=== PATIENT | male | born 1955 | race Two or more races ===

== ENCOUNTER 2024-09-05 07:04 | Inpatient (IN) | payer OTHER ==
[~2024-09-05] VITALS: Ht 188 cm; Wt 145.2 kg
[2024-09-05] VITALS (10 sets, daily range): BP systolic 110–118; BP diastolic 60–78; PULSE 76–106; RESP 14–20; TEMP 97.2–98.3; O2SAT 91–99
[~2024-09-05 07:04] MED LIST: ALBUAER3 IN; ATOR-507 PO; CHOL1TAB28 PO; CYAN-17 PO; FLUT1AER3 IN; LISI-706 PO; OMEG-20 PO; RIVA20TA PO; SILD50TA PO; SPIR25TA8 PO
[2024-09-05] MEDS ORDERED: MORPHINE SULF PF 5 MG/10 ML VIAL ONE (08:06)
[2024-09-05] MEDS: ACETAMINOPHEN IV 1000 MG/100ML (10MG/ML) IV ONE (08:30)
[2024-09-05] MEDS: CELECOXIB 100 MG CAP PO ONE (08:30)
[2024-09-05] MEDS: PREGABALIN CAPSULE 75 MG CAP PO ONE (08:30)
[2024-09-05] MEDS ORDERED: PROPOFOL 10 MG/ML 20 ML IV ONE (08:34)
[2024-09-05] MEDS ORDERED: MIDAZOLAM HCL 2MG/2ML 2ml VIAL (1mg/ml) ONE (08:34)
[2024-09-05] MEDS ORDERED: fentaNYL CITRATE 100 MCG/2 ML VL ONE (08:34)
[2024-09-05] MEDS ORDERED: ePHEDrine SULFATE 50 MG/ML AMP ONE (09:11)
[2024-09-05] MEDS ORDERED: ONDANSETRON HCL 4 MG/2 ML VIAL IV PRN (10:15)
[2024-09-05] MEDS ORDERED: HYDROmorphone HCL 2 MG/ML VL/or syr IV PRN (10:15)
[2024-09-05] MEDS ORDERED: NITROGLYCERIN 0.4 MG SL TAB SL PRN (10:15)
[2024-09-05] MEDS ORDERED: MORPHINE SULFATE INJ 2 MG/ml SYRG IV PRN (10:15)
[2024-09-05] MEDS ORDERED: ALBUTEROL SULF HFA 90MCG INH 200DOSE IN SCH (10:15)
[2024-09-05] MEDS: LACTATED RINGER'S 1,000 ML IV SCH (10:55)
[2024-09-05] MEDS ORDERED: ACCU-CHEK COMFORT CURVE STRIP VI SCH (11:30)
[2024-09-05] MEDS: ACETAMINOPHEN IV 100 ML IV ONE (12:00)
[2024-09-05] MEDS: ceFAZolin 2 GM/D5W100ml 100 ML IV ONE (12:00)
[2024-09-05] MEDS: BUPIVACAINE 0.25% INJ 50ML VIAL ONE (12:01)
[2024-09-05] MEDS: TRANEXAMIC ACID 20 ML ONE (12:01)
[2024-09-05] MEDS: KETOROLAC TROMETH 30 MG/ML 1ML VIAL ONE (12:01)
[2024-09-05] MEDS: GABAPENTIN 400 MG CAP ONE (12:01)
[2024-09-05] MEDS: VANCOMYCIN HCL 1000 MG VL ONE (12:01)
[2024-09-05] MEDS: ROPIVACAINE 0.5% (5MG/ML) 20ML AMPULE IJ ONE (12:02)
[2024-09-05] MEDS ORDERED: DEXTROSE (50%) 50ML SYRG IV PRN (12:15)
[2024-09-05] MEDS: ACCU-CHEK COMFORT CURVE STRIP VI SCH (12:29)
[2024-09-05] MEDS: InsuLIN REG 1unit/0.01ml Soln (100units/ml) SC SCH ×2 (12:29→22:00)
--- NOTE | 2024-09-05 13:08 | DVH ---
CLINICAL INDICATION: S/P SURGERY TECHNIQUE: XY R KNEE 3V XRAY Comparison: None FINDINGS/IMPRESSION: There is no evidence of acute fracture or dislocation. Right total knee arthroplasty.
[2024-09-05] MEDS: ceFAZolin 2 GM/D5W50ml 50 ML IV SCH (13:58)
[2024-09-05] MEDS: SODIUM CHLOR 0.9% PF (SALINE LOCK) 10ML VIAL/SYR IV SCH (13:59)
--- NOTE | 2024-09-05 14:06 | DVHINCON2 ---
Date of service: Sep 05, 2024 Reason for Consultation Medical Management History of Present Illness HPI Patient is a 69M with PMH of HTN, atrial fibrillation on Xarelto, who presents for right total knee replacement. Patient seen after procedure. Notes pain is well managed. Home Meds Reported Medications Spironolactone (Spironolactone) 25 Mg Tab, 25 MG PO DAILY, TAB 09/01/24 Lisinopril & Hydrochlorothiazi (Zestoretic 20-12.5 mg) 1 Tab Tab, 1 TAB PO DAILY, TAB 09/01/24 Atorvastatin Calcium (Lipitor) 40 Mg Tab, 40 MG PO DAILY, TAB 09/01/24 Rivaroxaban (XARELTO) 20 Mg Tab, 20 MG PO DAILY, TAB 09/01/24 Suqbiqfajpm-Drvhvlfwqezl-Gsvdc (Trelegy Ellipta 100-62.5-25 Mcg/INH) 1 Aer Aer, 1 AER IN DAILY, AER 09/01/24 Albuterol Sulfate (VENTOLIN MDI) 90 Mcg Ih, 90 MCG IN PRN, INH 09/01/24 Cyanocobalamin (B12) 1,000 Mcg Cap, 500 MCG PO DAILY, CAP 09/01/24 Cholecalciferol (D3 2000) 2,000 Unit Tab, 2000 UNIT PO DAILY, TAB 09/01/24 [place]-3 Fatty Acids (FISH OIL) 1,000 Mg Cap, 1000 MG PO DAILY, CAP 09/01/24 Sildenafil Citrate (Viagra) 50 Mg Tab, 50 MG PO UD, TAB 09/01/24 Past Medical History Cardiac: AFIB Review of Systems Constitutional: No symptom reported Cardiovascular: No symptom reported Gastrointestinal: No symptom reported H&P Exam Vital Signs Vital Signs Date Time Temp Pulse Resp B/P (MAP) Pulse Ox O2 Delivery O2 Flow Rate FiO2 09/05/24 13:40 81 11 126/78 (94) 93 09/05/24 12:55 Room Air 0 09/05/24 12:55 95 09/05/24 10:55 97.0 97.0 General Appeara: Well developed Pulmonary/Respiratory: Normal inspection, Normal breath sounds Cardiovascular/Chest: Normal inspection, Regular rate Labs/Xrays Labs Test 09/05/24 12:29 Range/Units POC Glucose 84 70-106 mg/dl Assessment/Plan Primary Diagnosis 1. Right Total Knee Replacement 2' Diagnosis/Co-morbidities 2. Hypertension 3. Atrial Fibrillation Plan -CBC and CMP ordered -Hgb A1c ordered -Pain medications as listed in MAR -Hold DVT prophylaxis in setting of recent surgery. Patient takes Xarelto for atrial fibrillation which will suffice on discharge for DVT prophylaxis. -Home medications restarted per MAR -Physical therapy evaluation pending -Patient requests to return home on discharge. -Full Code Plan discussed with: Patient YOAN PALUMBO DO Sep 05, 2024 14:06
[2024-09-05 15:31] LABS: Basophils # (auto) 0.1 10 ^3/uL (0-0.2); Basophils % (auto) 0.4 % (0.0-2.0); Eosinophils # (auto) 0.3 10 ^3/uL (0-0.8); Eosinophils % (auto) 2.1 % (0.0-7.0); Hematocrit 42.8 % (41.0-53.0); Hemoglobin 14.5 g/dL (13.5-17.5); Lymphocytes # (auto) 1.9 10 ^3/uL (0.4-5.4); Mean Corpuscular Hemoglobin 30.8 pg (28.0-32.0); Mean Corpuscular Hgb Conc. 33.8 g/dL (32.0-36.0); Mean Corpuscular Volume 91.1 fL (80.0-100.0); Monocytes # (auto) 1.3 10 ^3/uL (0-1.3); Monocytes % (auto) 9.6 % (0.0-12.0); Neutrophils # (auto) 9.8 10 ^3/uL (1.6-8.6); Neutrophils % (auto) 73.9 % (37.0-80.0); Platelet Count (auto) 223 10^3/uL (140-450); Red Cell Distribution Width 13.5 % (11.8-14.3); White Blood Cell 13.2 10^3/uL (4.4-10.8)
[2024-09-05 15:51] LABS: Alanine Aminotransferase 29 U/L (7-40); Alkaline Phosphatase 92 U/L (46-116); Anion Gap 7 (5-15); Aspartate Aminotransferase 23 U/L (13-40); Blood Urea Nitrogen 11 mg/dL (9-23); Carbon Dioxide 30 mmol/L (20-31); Chloride 102 mmol/L (98-107); Cholesterol 160 mg/dL (< 200); Glucose 99 mg/dL (74-106); LDL Cholesterol 88 mg/dL (< 100); Sodium 139 mmol/L (136-145); Triglycerides 103 mg/dL (< 150)
[2024-09-05 15:52] LABS: HDL Cholesterol 50 mg/dL (40-59); Total Protein 6.3 g/dL (5.7-8.2)
[2024-09-05 15:58] LABS: Bilirubin, Total 0.8 mg/dL (0.2-1.0)
[2024-09-05] MEDS: ALBUTEROL SULF 2.5 MG/0.5ML(0.5%) NEB SOLN NEB PRN (18:41)
[2024-09-05] MEDS: RIVAROXABAN 20 MG TAB PO SCH (18:43)
[2024-09-05] MEDS: DOCUSATE SOD 100 MG CAP PO SCH (22:42)
[2024-09-05] MEDS: oxyCODONE ER 10 MG TAB PO SCH (22:42)
[2024-09-05] MEDS: ATORVASTATIN 20 MG TAB PO SCH (23:12)
[2024-09-06] VITALS (8 sets, daily range): BP systolic 118–142; BP diastolic 56–74; PULSE 69–91; RESP 16–20; TEMP 97.6–98.5; O2SAT 92–98
[2024-09-06] MEDS: CEFEPIME 1GM/ 50ML 50 ML IV SCH (00:01)
[2024-09-06] MEDS: PANTOPRAZOLE 40 MG TAB PO SCH (05:55)
--- NOTE | 2024-09-06 06:24 | DVHOP2 ---
Operative Report - 2 Report Details Date: 09/05/24 Preop Diagnosis: Right knee osteoarthritis with valgus deformity Postop Diagnosis: as above Surgeon: Juan Lagunas MD/ Christopher Ramos MD Mortgage Clerk: Jonathan HOLMAN Anesthesiologist: Shaka VEGA Anesthesia: Regional Implant: [employer] see implant log Consent: The patient was informed of the risks and benefits of the procedure. These include but are not limited to complications of anesthesia, postoperative infection, incomplete relief of symptoms, recurrence of symptoms, damage to blood vessels, nerves and tendons, deep venous thrombosis, pulmonary embolism and possible need for repeat surgery in the future. Estimated Blood Loss: 50 cc Name of Procedure Performed Right total knee arthroplasty with computer navigation Procedure Details Procedure Details: FINDINGS: degenerative disease with grade IV changes with valgus deformity INDICATION: This patient has failed non-operative treatments for knee arthritis and is now indicated for a total knee replacement. Preoperatively in the waiting area as well as in the office, I had a long discussion with the patient regarding the plan, the expected outcome, the risks, benefits, and alternatives of surgery. The risks include, but are not limited to, infection (which may require future surgery and removal of implants) , bleeding (which may require a transfusion), damage to nerves, arteries, veins, tendons, muscles and other adjacent structures. Also discussed the possibilities of intraoperative fractures, implant loosening, heterotopic bone formation, and revision for variety of reasons, and medical complications etc. This was discussed at length and consent has been obtained. DESCRIPTION OF PROCEDURE: In the preoperative holding area, the consent was reviewed and the appropriate extremity was verified by the patient and marked with my initials. The patient was then transferred to the operating theatre. Appropriate anesthesia was induced. All bony prominences were well padded. A time out was performed verifying the side and site of surgery according to standard protocol. Preoperative antibiotics were given 10 minutes prior to tourniquet inflation. Tranexamic was given. A well padded thigh tourniquet was applied. The extremity was then prepped and draped in the usual sterile fashion. The extremity was exsanguinated and the tourniquet was inflated. We then made a mid-line incision, which we continued to the underlying capsular tissue. We performed a medial parapatellar arthrotomy. We periosteally exposed the proximal tibia, excised the anterior fat pad and synovium from the distal aspect of the femur. We then subluxed the patella and brought the knee up into flexion. The lateral meniscus, ACL, and PCL were released. We used the appropriate guide with attached computer navigation to secure the distal femoral cutting block to the femur with pins and completed the distal femoral cut in 0 degrees to the mechanical axis with an oscillating saw. We removed the distal femoral cutting block and turned our attention to the tibia. We used the extramedullary tibial alignment guide with computer navigation to secure the proximal tibial cutting block to the tibia with pins, setting it for a 1mm cut from the more involved side, medially and completed the proximal tibial cut. We then used the spacer block and alignment bruna to check the varus-valgus angle of our cuts and the extension gap. We marked our femoral anatomy, including Eun's line and the epicondylar axis. Using that as a rotational guide, we used the sizing guide to size our femur properly, using a stylus to ensure there would be no notching. We then used the AP cutting guide to make our anterior and posterior cuts and chamfer cuts with an oscillating saw. We again checked the flexion and extension gaps and coronal balancing. Next, we sized our tibia and secured a baseplate with appropriate rotation with pins. We placed a trial femur in position and completed preparation of the notch with reamers and box osteotome and placed a trial notch in position. We used trials to choose our liner size and then placed the liner in place and reduced the knee . At this point, we checked our seven parameters: 1) Limb alignment 2) Extension 3) Flexion against gravity 4) Flexion stability 5) Varus-valgus balancing 6) Component rotation 7) Patella tracking We were satisfied with these and removed all trials with the exception of the baseplate. We completed preparation of the tibia with the appropriate reamer and keel impactor and then removed the baseplate. We placed a bone plug in the distal femur and then irrigated and dried all bony surfaces and injected our pain cocktail. Cement with antibiotics was hand-mixed on the back table. We thumb impacted cement into the proximal tibia, distal femur impacted our tibial, femoral components into position. Excess cement was removed with curettes. We impacted our liner and reduced the knee and held it with axial loading until all cement hardened. We did a sanjeev-articular cocktail block Once all cement had hardened, we brought the knee back up into flexion and used an osteotome to remove excess cement. We released the tourniquet and achieved hemostasis where necessary. A dilute betadine solution (17.5mL in 500mL saline) was used to wash the joint and left to sit for 3 minutes. This was then irrigated out with copious amounts of pulse lavage. We sprinkled 1g vancomycin powder below the fascia and 1g above the fascia. We copiously irrigated the knee. We re-checked our seven parameters. We closed our capsular incision with a PDS style suture. We irrigated further. We closed the subcutaneous tissue with Vicryl suture and re-approximated the skin with [place]. We verified all lower extremity compartments were soft and compressible and that we had intact distal pulses. We wrapped the extremity in sterile Webril and mally bandage. The patient was transferred to the recovery room in stable condition. Condition Good Disposition Still a Patient CHRISTOPHER RAMOS MD Sep 06, 2024 06:24
[2024-09-06 07:14] LABS: Hematocrit 38.5 % (41.0-53.0); Hemoglobin 13.2 g/dL (13.5-17.5)
[2024-09-06 07:20] LABS: Alanine Aminotransferase 23 U/L (7-40); Albumin 3.7 g/dL (3.2-4.8); Alkaline Phosphatase 85 U/L (46-116); Anion Gap 6 (5-15); Aspartate Aminotransferase 17 U/L (13-40); BUN/Creatinine Ratio 14.5 (10.0-20.0); Blood Urea Nitrogen 12 mg/dL (9-23); Calcium 9.2 mg/dL (8.7-10.4); Carbon Dioxide 29 mmol/L (20-31); Chloride 102 mmol/L (98-107); Potassium 4.2 mmol/L (3.5-5.1); Sodium 137 mmol/L (136-145); Total Protein 5.9 g/dL (5.7-8.2)
[2024-09-06 07:24] LABS: Bilirubin, Total 1.3 mg/dL (0.2-1.0); Glucose 116 mg/dL (74-106)
--- NOTE | 2024-09-06 09:06 | DVHDS2 ---
Discharge Summary Date of Admission Sep 05, 2024 at 10:09 Date of Discharge: Sep 06, 2024 Wounds: dressing to be kept clean, dry and intact until first post op visit Labs/Diagnostic Data: Laboratory Results Test 09/06/24 06:01 09/06/24 04:57 09/05/24 15:15 Hemoglobin 13.2 g/dL (13.5-17.5) Hematocrit 38.5 % (41.0-53.0) Sodium Level 137 mmol/L (136-145) Potassium Level 4.2 mmol/L (3.5-5.1) Chloride Level 102 mmol/L (98-107) Carbon Dioxide Level 29 mmol/L (20-31) Anion Gap 6 (5-15) Blood Urea Nitrogen 12 mg/dL (9-23) Creatinine 0.83 mg/dL (0.700-1.30) Glomerular Filtration Rate Calc 94 mL/min (>90) BUN/Creatinine Ratio 14.5 (10.0-20.0) Serum Glucose 116 mg/dL (74-106) Calcium Level 9.2 mg/dL (8.7-10.4) Total Bilirubin 1.3 mg/dL (0.2-1.0) Aspartate Amino Transferase (AST) 17 U/L (13-40) Alanine Aminotransferase (ALT) 23 U/L (7-40) Alkaline Phosphatase 85 U/L (46-116) Total Protein 5.9 g/dL (5.7-8.2) Albumin 3.7 g/dL (3.2-4.8) POC Glucose 129 mg/dl (70-106) White Blood Count 13.2 10^3/uL (4.4-10.8) Red Blood Count 4.70 10^6/uL (4.5-5.90) Mean Corpuscular Volume 91.1 fL (80.0-100.0) Mean Corpuscular Hemoglobin 30.8 pg (28.0-32.0) Mean Corpuscular Hemoglobin Concent 33.8 g/dL (32.0-36.0) Red Cell Distribution Width 13.5 % (11.8-14.3) Platelet Count 223 10^3/uL (140-450) Mean Platelet Volume 8.8 fL (6.9-10.8) Neutrophils (%) (Auto) 73.9 % (37.0-80.0) Lymphocytes (%) (Auto) 14.0 % (10.0-50.0) Monocytes (%) (Auto) 9.6 % (0.0-12.0) Eosinophils (%) (Auto) 2.1 % (0.0-7.0) Basophils (%) (Auto) 0.4 % (0.0-2.0) Neutrophils # (Auto) 9.8 10 ^3/uL (1.6-8.6) Lymphocytes # (Auto) 1.9 10 ^3/uL (0.4-5.4) Monocytes # (Auto) 1.3 10 ^3/uL (0-1.3) Eosinophils # (Auto) 0.3 10 ^3/uL (0-0.8) Basophils # (Auto) 0.1 10 ^3/uL (0-0.2) Nucleated Red Blood Cells 0.0 % Hemoglobin A1c 6.0 % A1C (<5.7) Triglycerides Level 103 mg/dL (< 150) Cholesterol Level 160 mg/dL (< 200) LDL Cholesterol 88 mg/dL (< 100) HDL Cholesterol 50 mg/dL (40-59) Other Laboratory Tests 09/06/24 06:01 09/05/24 15:15 Brief Hx & Hospital Course: s/p right TKA Condition at Discharge: Good Final Diagnosis/Problems List as above Discharge Disposition: Home with Health Services Discharge Instruct/Medications Diet: Regular Diet comment: drink plenty of fluids, avoid alcohol while taking narcotics. Activity: No Restrictions, As Tolerated Activity comment: Avoid running/jumping for 6 weeks. Continue with CPM daily as ordered. Can bear weight as tolerated with use of walker Follow Up/Referral: [address] Hawk as scheduled Medications: patient to resume blood thinner at home and has percocet and colace at home as prescribed prior to surgery Discharge Statement: "Patient was advised to return to the ER or call 911 if any headaches, dizziness, shortness of breath, chest pain, abdominal pain, bleeding, fevers, or worsening of medical condition. Patient was counseled about treatment plan, medications, possible side effects, patientverbalized understanding. All questions were answered to the best of my ability. This discharge took greater then 30 minutes in planning, reviewing documentation, counseling the patient, and discussing with other team members." ASSESSMENT ASSESSMENT Assessment as above KENYA DANIELS NP Sep 06, 2024 09:06
[2024-09-06] MEDS: OXYCODONE W/ ACETAMINOPHEN 5/325MG TABLET PO PRN (09:36)
[2024-09-06] MEDS ORDERED: CHOLECALCIFEROL 2000 UNIT PO SCH (10:00)
[2024-09-06] MEDS: PATIENTS OWN MEDICATION (Fluticasone-Umeclidinium-Vilan (Trelegy Ellipta 100-62.5-25 Mcg/I IN SCH (10:00)
[2024-09-06] MEDS ORDERED: RIVAROXABAN 20 MG TAB PO SCH (10:00)
[2024-09-06] MEDS ORDERED: PATIENTS OWN MEDICATION (Lisinopril & Hydrochlorothiazi (Zestoretic 20-12.5 mg) 1 TAB) PO SCH (10:00)
[2024-09-06] MEDS ORDERED: CEFEPIME 1GM/ 50ML 50 ML IV SCH (10:00)
[2024-09-06] MEDS ORDERED: PATIENTS OWN MEDICATION (Atorvastatin Calcium (Lipitor) 40 MG) PO SCH (10:00)
[2024-09-06] MEDS ORDERED: CYANOCOBALAMIN 500 MCG PO SCH (10:00)
[2024-09-06] MEDS: FATTY ACIDS PO SCH (10:00)
[2024-09-06] MEDS: OMEGA PO SCH (10:00)
[2024-09-06] MEDS: LISINOPRIL 20 MG TAB PO SCH (10:25)
[2024-09-06] MEDS: SPIRONOLACTONE 25 MG TAB PO SCH (10:25)
[2024-09-06] MEDS: CHOLECALCIFEROL (VITD3) 1,000UNIT=25mCg TAB PO SCH (10:25)
[2024-09-06] MEDS: hydroCHLOROthiazide 25 MG TAB PO SCH (10:26)
[2024-09-06] MEDS: CYANOCOBALAMIN 500 MCG TAB PO SCH (10:26)
== END 2024-09-06 14:11 | disposition home health service (06) | DRG 470 ==
LOC: SUR 07:04 → OVERFLOW 10:09 → EAST 14:32
PROVIDERS: ADMIT Orthopaedic Surgery Adult Reconstructive Orthopaedic Surgery; ATTEND Orthopaedic Surgery Adult Reconstructive Orthopaedic Surgery
PROC: 8E0YXBZ Computer Assisted Procedure of Lower Extremity (ICD-10-PCS; 2024-09-05)
PROC: 0SRC0J9 Replacement of Right Knee Joint with Synthetic Substitute, Cemented, Open Approach (ICD-10-PCS; principal; 2024-09-05 09:02)
DX: M17.11 Unilateral primary osteoarthritis, right knee (principal); I48.91 Unspecified atrial fibrillation; M21.061 Valgus deformity, not elsewhere classified, right knee; I10 Essential (primary) hypertension; Z79.01 Long term (current) use of anticoagulants; Z79.899 Other long term (current) drug therapy
CPT/HCPCS: 36415; 73562; 80053; 80061; 82962; 83036; 85014; 85018; 85025; 86850; 86900; 86901; 94640; 97163; G0378; J0131; J1815; J1885; J2250; J2704; J3490